=== PATIENT | female | born 1995 | race Caucasian/White ===

== ENCOUNTER 2020-04-20 02:04 | Emergency (ER) | payer SELFPAY ==
[2020-04-20] MEDS ORDERED: Sodium Chloride 0.9% 10 ML Syringe FLUSH PRN (02:29)
[2020-04-20] MEDS ORDERED: Sodium Chloride 0.9% 1,000 ML IV ONE (02:29)
[2020-04-20] MEDS ORDERED: Sodium Chloride 0.9% 2.5 ML Syringe FLUSH PRN (02:29)
[2020-04-20 03:32] LABS: BLOOD UREA NITROGEN,BUN 6 mg/dL (7.0-18.0); CARBON DIOXIDE,CO2 22.6 mmol/L (21.0-32.0); CHLORIDE,CL 103 mmol/L (98-107); GLUCOSE RANDOM 99 mg/dL (74-106); POTASSIUM,K 3.6 mmol/L (3.5-5.1); SODIUM,NA 140 mmol/L (136-145)
--- NOTE | 2020-04-20 03:33 | US ---
INDICATION: with bleeding and cramping. TECHNIQUE: Ultrasound OB pelvis transvaginal. Real-time boyle-scale imaging of the pelvis was performed. COMPARISON: None FINDINGS: There is an intrauterine . Yolk sac is abnormally enlarged. Fetus is present with a crown-rump length of 17 mm which would correspond to an 8 week 2 day gestational age and estimated date of delivery November 28, 2020. There is no heart activity which would be expected at this stage. The ovaries are of normal size. There are no suspicious fluid collections noted in the cul-de-sac. IMPRESSION: Nonviable 1st trimester dating . Findings consistent with demise. Dictated by Gustavo David MD @ Apr 20 2020 3:30AM Signed by Dr. Gustavo David @ Apr 20 2020 3:32AM
--- NOTE | 2020-04-20 03:39 | EDM.PDOC ---
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 Patient's last menstrual jenna od was 8 weeks ago. Patient reports she has not had prior ultrasounds or prior care. Patient reports this evening she started noticing vaginal bleeding and abdominal cramping so came to the ED. Patient reports that she is used less than 1 pad thus far. Patient denies any recent fevers, shakes, chills, nausea, vomiting, diarrhea, dysuria, frequency, urgency, chest pain, shortness of breath. Patient has any history of hypertension, diabetes, liver, lung, kidney problems. Patient denies any prior abdominal or chest surgeries. Patient denies any tobacco alcohol or drugs. Patient has no known drug allergies Review of systems: As per history of present illness and below otherwise all systems reviewed and negative. Past medical history: As per history of present illness and as reviewed below otherwise noncontributory. Surgical history: As per history of present illness and as reviewed below otherwise noncontributory. Social history: No reported history of drug or alcohol abuse. Family history: As per history of present illness and as reviewed below otherwise noncontributory. Physical exam: Constitutional: Patient is oriented to person, place, and time. Appears well- developed and well-nourished. No distress. HEENT: Moist mucous membranes Head: Normocephalic and atraumatic Eyes: Right eye exhibits no discharge. Left eye exhibits no discharge. No scleral icterus Neck: Normal range of motion. No tracheal deviation present. Cardiovascular: Normal rate and regular rhythm. Pulmonary: Effort normal, no respiratory distress. Abd: Soft, nondistended, no rebound/guarding, no psoas or obturator signs, no tenderness at Mcberney's point, no Mireles's sign. Pt does not present with an exam that would be consistent with an acute surgical abdomen at this time, mild tenderness palpation suprapubic region Pelvic exam: Os closed. No adnexal masses or tenderness, no cervical motion tenderness, positive blood in vaginal vault Musculoskeletal: Normal range of motion Neurologic: Alert and oriented to person, place and time. Skin: [place], warm and dry. Psychiatric: Normal mood and affect. Behavior is normal. Judgment and thought content normal. Nursing note and vital signs have been reviewed Diagnostics: Ultrasound reveals single 8-week IUP with no cardiac activity seen normal ovaries, exam consistent with intrauterine demise. Patient is Rh+ CBC within normal limits No evidence of UTI, increased blood likely contaminant Therapeutics: NSS x1 L Assessment and plan: This is a 24-year-old female with 8-week IUFD diagnosed by ultrasound. Patient is clinically and hemodynamically stable here in the ED. I have discussed the results with the patient and her . 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 Reassessment at the time of disposition demonstrates that the patient is in no acute distress. The patient has remained stable throughout the entire ED visit and is without objective evidence for acute process requiring urgent intervention or hospitalization. The patient is stable for discharge, counseling is provided as documented above, discussed symptomatic treatment and specific conditions for return. I have spoken with the patient/caregiver and discussed todays findings, in addition to providing specific details for the plan of care. Questions are answered and there is agreement with the plan. Definitive disposition and diagnosis as appropriate pending reevaluation and review of above. - Related Data Allergies Allergy/AdvReac Type Severity Reaction Status Date / Time No Known Allergies Allergy Verified 04/20/20 02:25 Home Meds: Home Meds . [No Known Home Meds] 04/20/20 [History] Past Medical History - Past Health History Medical/Surgical History: Denies Medical/Surgical History - Infectious Disease History Infectious Disease History: Reports: Chicken Pox Social & Family History - Tobacco Use Tobacco Use Status *Q: Never Tobacco User - Recreational Drug Use Recreational Drug Use: No ED ROS GENERAL - Review of Systems Review Of Systems: See Below ED EXAM, GENERAL - Physical Exam Exam: See Below Course - Vital Signs Last Recorded V/S: Last Vital Signs Temp 97.9 F 04/20/20 02:22 Pulse 90 04/20/20 02:22 Resp 18 04/20/20 02:22 BP 145/77 H 04/20/20 02:22 Pulse Ox 98 04/20/20 02:22 - Orders/Labs/Meds Orders: Active Orders 24 hr Category Date Time Status OB 1st Tri Sgl 1st Gest [US] Stat Exams 04/20/20 02:30 Taken COMPREHENSIVE METABOLIC PN,CMP [CHEM] Stat Lab 04/20/20 02:45 Received HCG QUANTITATIVE [CHEM] Stat Lab 04/20/20 02:45 Received Sodium Chloride 0.9% [Saline Flush] Med 04/20/20 02:29 Active 10 ml FLUSH ASDIRECTED PRN Sodium Chloride 0.9% [Saline Flush] Med 04/20/20 02:29 Active 2.5 ml FLUSH ASDIRECTED PRN Saline Lock Insert [OM.PC] Stat Oth 04/20/20 02:30 Ordered Medication Orders Sodium Chloride (Saline Flush) 10 ml FLUSH ASDIRECTED PRN PRN Reason: Keep Vein Open Sodium Chloride (Saline Flush) 2.5 ml FLUSH ASDIRECTED PRN PRN Reason: Keep Vein Open Labs: Laboratory Tests 04/20/20 04/20/20 04/20/20 Range/Units 02:15 02:45 02:45 WBC 9.58 (4.0-11.0) K/uL RBC 5.33 (4.30-5.90) M/uL Hgb 13.8 (12.0-16.0) g/dL Hct 41.3 (36.0-46.0) % MCV 77.5 L (80.0-98.0) fL MCH 25.9 L (27.0-32.0) pg MCHC 33.4 (31.0-37.0) g/dL RDW Std Deviation 37.9 (28.0-62.0) fl RDW Coeff of Jamir 13 (11.0-15.0) % Plt Count 222 (150-400) K/uL MPV 10.10 (7.40-12.00) fL Neut % (Auto) 57.4 (48.0-80.0) % Lymph % (Auto) 33.1 (16.0-40.0) % [place] % (Auto) 7.3 (0.0-15.0) % Eos % (Auto) 2.0 (0.0-7.0) % Baso % (Auto) 0.2 (0.0-1.5) % Neut # (Auto) 5.5 (1.4-5.7) K/uL Lymph # (Auto) 3.2 H (0.6-2.4) K/uL [place] # (Auto) 0.7 (0.0-0.8) K/uL Eos # (Auto) 0.2 (0.0-0.7) K/uL Baso # (Auto) 0.0 (0.0-0.1) K/uL Nucleated RBC % 0.0 /100WBC Nucleated RBCs # 0 K/uL Urine Color YELLOW Urine Appearance CLOUDY Urine pH 6.5 (5.0-8.0) Ur Specific [place] >= 1.030 (1.001-1.035) Urine Protein TRACE H (NEGATIVE) mg/dL Urine Glucose (UA) NEGATIVE (NEGATIVE) mg/dL Urine Ketones NEGATIVE (NEGATIVE) mg/dL Urine Occult Blood LARGE H (NEGATIVE) Urine Nitrite NEGATIVE (NEGATIVE) Urine Bilirubin NEGATIVE (NEGATIVE) Urine Urobilinogen 1.0 (<2.0) EU/dL Ur Leukocyte Esterase TRACE H (NEGATIVE) Urine RBC TOO NUMEROUS TO CT H (0-2/HPF) Urine WBC 2-4 (0-5/HPF) Ur Epithelial Cells FEW (NONE-FEW) Urine Bacteria FEW (NEGATIVE) Urine Mucus MODERATE (NONE-MOD) Blood Type A POSITIVE Meds: Medications Generic Name Dose Route Start Last Admin Trade Name Freq PRN Reason Stop Dose Admin Sodium Chloride 10 ml 04/20/20 02:29 Saline Flush FLUSH ASDIRECTED PRN Keep Vein Open Sodium Chloride 2.5 ml 04/20/20 02:29 Saline Flush FLUSH ASDIRECTED PRN Keep Vein Open Discontinued Medications Generic Name Dose Route Start Last Admin Trade Name Freq PRN Reason Stop Dose Admin Sodium Chloride 1,000 mls @ 1,000 mls/hr 04/20/20 02:29 04/20/20 02:47 Normal Saline IV 04/20/20 03:28 1,000 mls/hr BOLUS ONE Administration Departure - Departure Time of Disposition: 03:36 Disposition: Home, Self-Care 01 Condition: Good Clinical Impression: Threatened , demise due to miscarriage, Miscarriage - Discharge Information Instructions: Managing Loss, Miscarriage Referrals: PCP,None [Primary Care Provider] - Additional Instructions: I am sorry to inform you that you are currently having a miscarriage. The ultrasound revealed an 8-week intrauterine with no cardiac activity that was identified. You will continue to have bleeding over the next several days consistent with an extremely heavy period and cramping. You should return to the emergency department if you start bleeding more than 2-3 pads per hour f or more than 2 to 3 hours consecutively. Please make an appointment to follow- up with your OB doctor or you can call our OB clinic for follow-up. Return to the ER if you have any new or concerning symptoms or need assistance with anything. [facility] [address] [place] [id number] [facility] [address] [place] [id number] The following information is given to patients seen in the emergency department who are being discharged to home. This information is to outline your options for follow-up care. We provide all patients seen in our emergency department with a follow-up referral. The need for follow-up, as well as the timing and circumstances, are variable depending upon the specifics of your emergency department visit. If you don't have a primary care physician on staff, we will provide you with a referral. We always advise you to contact your personal physician following an emergency department visit to inform them of the circumstance of the visit and for follow-up with them and/or the need for any referrals to a consulting specialist. The emergency department will also refer you to a specialist when appropriate. This referral assures that you have the opportunity for follow-up care with a specialist. All of these measure are taken in an effort to provide you with optimal care, which includes your follow-up. Under all circumstances we always encourage you to contact your private physician who remains a resource for coordinating your care. When calling for follow-up care, please make the office aware that this follow-up is from your recent emergency room visit. If for any reason you are refused follow-up, please contact the [facility] Emergency Department at and asked to speak to the emergency department charge nurse. Sepsis Event Note (ED) - Evaluation Sepsis Screening Result: No Definite Risk - Focused Exam Vital Signs: Vital Signs Temp Pulse Resp BP Pulse Ox 04/20/20 02:22 97.9 F 90 18 145/77 H 98 - My Orders Last 24 Hours: My Active Orders 04/20/20 02:29 Sodium Chloride 0.9% [Saline Flush] 10 ml FLUSH ASDIRECTED PRN Sodium Chloride 0.9% [Saline Flush] 2.5 ml FLUSH ASDIRECTED PRN 04/20/20 02:30 OB 1st Tri Sgl 1st Gest [US] Stat Saline Lock Insert [OM.PC] Stat 04/20/20 02:45 COMPREHENSIVE METABOLIC PN,CMP [CHEM] Stat HCG QUANTITATIVE [CHEM] Stat - Assessment/Plan Last 24 Hours: My Active Orders 04/20/20 02:29 Sodium Chloride 0.9% [Saline Flush] 10 ml FLUSH ASDIRECTED PRN Sodium Chloride 0.9% [Saline Flush] 2.5 ml FLUSH ASDIRECTED PRN 04/20/20 02:30 OB 1st Tri Sgl 1st Gest [US] Stat Saline Lock Insert [OM.PC] Stat 04/20/20 02:45 COMPREHENSIVE METABOLIC PN,CMP [CHEM] Stat HCG QUANTITATIVE [CHEM] Stat
== END 2020-04-20 03:58 | disposition home or self-care (01) ==
LOC: MW.ED 02:04
DX: O02.1 Missed abortion (principal)
CPT/HCPCS: 36415; 76801; 80053; 81001; 84702; 85025; 86900; 86901; 99284; J7030

== ENCOUNTER 2020-05-08 21:02 | Emergency (ER) | payer SELFPAY ==
[2020-05-08] MEDS ORDERED: Sodium Chloride 0.9% 10 ML Syringe FLUSH PRN (21:20)
[2020-05-08] MEDS ORDERED: Sodium Chloride 0.9% 2.5 ML Syringe FLUSH PRN (21:20)
[2020-05-08] MEDS ORDERED: Sodium Chloride 0.9% 1,000 ML IV ONE (21:20)
[2020-05-08 22:26] LABS: BLOOD UREA NITROGEN,BUN 10 mg/dL (7.0-18.0); CARBON DIOXIDE,CO2 23.6 mmol/L (21.0-32.0); CHLORIDE,CL 105 mmol/L (98-107); GLUCOSE RANDOM 97 mg/dL (74-106); POTASSIUM,K 3.6 mmol/L (3.5-5.1); SODIUM,NA 140 mmol/L (136-145)
--- NOTE | 2020-05-08 22:49 | US ---
HISTORY: demise previously diagnosed, methotrexate taken 04/25, now with increased vaginal bleeding. COMPARISON: Ob ultrasound from 04/20/2020 TECHNIQUE: Transvaginal ultrasound examination of the early was performed. FINDINGS: A single intrauterine gestational sac is seen with a pole. The crown-rump length measurement of 1.3 cm gives an estimated gestational age of 7 weeks 5 days. This is similar to the estimated age of 8 weeks 2 days reported on the previous ultrasound from 04/20/2020. No cardiac activity is present, again consistent with demise. The gestational sac is irregular in shape, but located in the superior fundal uterine cavity. The findings are that of a missed spontaneous . There is no sign of free fluid in the pelvis. The ovaries are normal in appearance. IMPRESSION: Findings of a missed spontaneous . Single intrauterine gestation without cardiac activity, with no interval growth compared to the previous ultrasound of 04/20/2020. Gestational sac irregularly-shaped, but located in the superior uterine fundus. Dictated by Umesh Pfeiffer MD @ May 08 2020 10:42PM Signed by Dr. Umesh Pfeiffer @ May 08 2020 10:47PM
--- NOTE | 2020-05-08 23:08 | EDM.PDOC ---
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 Patient was seen in the ER here on April 20 and was diagnosed with a intrauterine demise by ultrasound at approximately 8 weeks gestation. 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 She reports that she to medication 2 days later had a small amount of bleeding. Patient presents the ER today secondary to increased bleeding today. Patient denies any recent fevers, shakes, chills, nausea, vomiting, diarrhea, dysuria, frequency, urgency, chest pain, shortness of breath, abdominal pain, pelvic pain. Patient denies any dizziness or syncopal episodes. Review of systems: As per history of present illness and below otherwise all systems reviewed and negative. Past medical history: As per history of present illness and as reviewed below otherwise noncontributory. Surgical history: As per history of present illness and as reviewed below otherwise noncontributory. Social history: No reported history of drug or alcohol abuse. Family history: As per history of present illness and as reviewed below otherwise noncontributory. Physical exam: Constitutional: Patient is oriented to person, place, and time. Appears well- developed and well-nourished. No distress. HEENT: Moist mucous membranes Head: Normocephalic and atraumatic Eyes: Right eye exhibits no discharge. Left eye exhibits no discharge. No scleral icterus Neck: Normal range of motion. No tracheal deviation present. Cardiovascular: Normal rate and regular rhythm. Pulmonary: Effort normal, no respiratory distress. Abd: Soft, nondistended, no rebound/guarding, no psoas or obturator signs, no tenderness at Mcberney's point, no Mireles's sign. Pt does not present with an exam that would be consistent with an acute surgical abdomen at this time, nontender to palpation. Pelvic exam deferred because patient had pelvic ult rasound already. Musculoskeletal: Normal range of motion Neurologic: Alert and oriented to person, place and time. Skin: [place], warm and dry. Psychiatric: Normal mood and affect. Behavior is normal. Judgment and thought content normal. Nursing note and vital signs have been reviewed Diagnostics: Pelvic ultrasound reveals no change in her gestational sac of approximately 8 weeks gestation. No heart activity. Patient's beta-hCG is down to about 2000. This is significantly decreased from 70,000 that it was a couple weeks ago. Patient CBC and CMP in electrolytes are all within normal limits Assessment and plan: 24-year-old female with intrauterine demise of 8 weeks gestation who presents ER today with vaginal bleeding. Patient is clinically and hemodynamically stable. Patient's ultrasound reveals no significant change from her prior ultrasound. Patient still has an 8-week size gestation with no heart activity. Patient beta-hCG is appropriately declining. Patient is hemodynamically stable. Patient abdominal exam is benign. Patient be discharged home with instructions to follow-up as scheduled with her OB doctor on Friday. Patient was given return precautions. Patient was told to return if she has any increased dizziness weakness or excessive bleeding that is concerning to her. Reassessment at the time of disposition demonstrates that the patient is in no acute distress. The patient has remained stable throughout the entire ED visit and is without objective evidence for acute process requiring urgent intervention or hospitalization. The patient is stable for discharge, counseling is provided as documented above, discussed symptomatic treatment and specific conditions for return. I have spoken with the patient/caregiver and discussed todays findings, in addition to providing specific details for the plan of care. Questions are answered and there is agreement with the plan. Definitive disposition and diagnosis as appropriate pending reevaluation and review of above. - Related Data Allergies Allergy/AdvReac Type Severity Reaction Status Date / Time No Known Allergies Allergy Verified 05/08/20 21:12 Home Meds: Home Meds . 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 History: Reports: , Spontaneous - Infectious Disease History Infectious Disease History: Reports: Chicken Pox Social & Family History - Tobacco Use Tobacco Use Status *Q: Never Tobacco User - Recreational Drug Use Recreational Drug Use: No ED ROS GENERAL - Review of Systems Review Of Systems: See Below ED EXAM, GENERAL - Physical Exam Exam: See Below Course - Vital Signs Last Recorded V/S: Last Vital Signs Temp 98.4 F 05/08/20 21:13 Pulse 86 05/08/20 21:37 Resp 18 05/08/20 21:37 BP 126/70 05/08/20 21:37 Pulse Ox 98 05/08/20 21:37 - Orders/Labs/Meds Orders: Active Orders 24 hr Category Date Time Status Sodium Chloride 0.9% [Saline Flush] Med 05/08/20 21:20 Active 10 ml FLUSH ASDIRECTED PRN Sodium Chloride 0.9% [Saline Flush] Med 05/08/20 21:20 Active 2.5 ml FLUSH ASDIRECTED PRN Saline Lock Insert [OM.PC] Stat Oth 05/08/20 21:20 Ordered Medication Orders Sodium Chloride (Saline Flush) 10 ml FLUSH ASDIRECTED PRN PRN Reason: Keep Vein Open Sodium Chloride (Saline Flush) 2.5 ml FLUSH ASDIRECTED PRN PRN Reason: Keep Vein Open Labs: Laboratory Tests 05/08/20 05/08/20 05/08/20 Range/Units 21:20 21:20 21:20 WBC 8.58 (4.0-11.0) K/uL RBC 5.22 (4.30-5.90) M/uL Hgb 13.4 (12.0-16.0) g/dL Hct 40.9 (36.0-46.0) % MCV 78.4 L (80.0-98.0) fL MCH 25.7 L (27.0-32.0) pg MCHC 32.8 (31.0-37.0) g/dL RDW Std Deviation 38.0 (28.0-62.0) fl RDW Coeff of Jamir 13 (11.0-15.0) % Plt Count 214 (150-400) K/uL MPV 10.60 (7.40-12.00) fL Neut % (Auto) 58.9 (48.0-80.0) % Lymph % (Auto) 31.4 (16.0-40.0) % [place] % (Auto) 7.3 (0.0-15.0) % Eos % (Auto) 2.2 (0.0-7.0) % Baso % (Auto) 0.2 (0.0-1.5) % Neut # (Auto) 5.1 (1.4-5.7) K/uL Lymph # (Auto) 2.7 H (0.6-2.4) K/uL [place] # (Auto) 0.6 (0.0-0.8) K/uL Eos # (Auto) 0.2 (0.0-0.7) K/uL Baso # (Auto) 0.0 (0.0-0.1) K/uL Nucleated RBC % 0.0 /100WBC Nucleated RBCs # 0 K/uL Sodium 140 (136-145) mmol/L Potassium 3.6 (3.5-5.1) mmol/L Chloride 105 (98-107) mmol/L Carbon Dioxide 23.6 (21.0-32.0) mmol/L BUN 10 (7.0-18.0) mg/dL Creatinine 0.6 (0.6-1.0) mg/dL Est Cr Clr Drug Dosing 125.92 mL/min Estimated GFR (MDRD) > 60.0 ml/min Glucose 97 (74-106) mg/dL Calcium 9.1 (8.5-10.1) mg/dL Total Bilirubin 0.2 (0.2-1.0) mg/dL AST 24 (15-37) IU/L ALT 40 (14-63) IU/L Alkaline Phosphatase 66 (46-116) U/L Total Protein 7.3 (6.4-8.2) g/dL Albumin 4.0 (3.4-5.0) g/dL Globulin 3.3 (2.6-4.0) g/dL Albumin/Globulin Ratio 1.2 (0.9-1.6) HCG, Quant 2040.0 mIU/mL Urine Color YELLOW Urine Appearance CLOUDY Urine pH 6.5 (5.0-8.0) Ur Specific [place] 1.025 (1.001-1.035) Urine Protein 30 H (NEGATIVE) mg/dL Urine Glucose (UA) NEGATIVE (NEGATIVE) mg/dL Urine Ketones NEGATIVE (NEGATIVE) mg/dL Urine Occult Blood LARGE H (NEGATIVE) Urine Nitrite NEGATIVE (NEGATIVE) Urine Bilirubin NEGATIVE (NEGATIVE) Urine Urobilinogen 1.0 (<2.0) EU/dL Ur Leukocyte Esterase TRACE H (NEGATIVE) Urine RBC >100 H (0-2/HPF) Urine WBC 0-1 (0-5/HPF) Ur Epithelial Cells RARE (NONE-FEW) Urine Bacteria RARE (NEGATIVE) Urine Mucus LIGHT (NONE-MOD) Meds: Medications Generic Name Dose Route Start Last Admin Trade Name Freq PRN Reason Stop Dose Admin Sodium Chloride 10 ml 05/08/20 21:20 Saline Flush FLUSH ASDIRECTED PRN Keep Vein Open Sodium Chloride 2.5 ml 05/08/20 21:20 Saline Flush FLUSH ASDIRECTED PRN Keep Vein Open Discontinued Medications Generic Name Dose Route Start Last Admin Trade Name Freq PRN Reason Stop Dose Admin Sodium Chloride 1,000 mls @ 999 mls/hr 05/08/20 21:20 05/08/20 21:35 Normal Saline IV 05/08/20 22:20 999 mls/hr .Bolus ONE Administration Departure - Departure Time of Disposition: 23:08 Disposition: Home, Self-Care 01 Condition: Good Clinical Impression: IUFD at less than 20 weeks of gestation - Discharge Information Instructions: Managing Loss, Miscarriage, [id number] Referrals: Robin Siegel MD [Primary Care Provider] - Additional Instructions: Please keep your appointment on Friday with your OB doctor. Return the ER if you have any excessive bleeding that is concerning to you. Return to the ER if you have any dizziness, shortness of breath or feel like you might pass out. Return to the ER if you are bleeding more than 3 pads an hour for more than 3 hours in a row. The following information is given to patients seen in the emergency department who are being discharged to home. This information is to outline your options for follow-up care. We provide all patients seen in our emergency department with a follow-up referral. The need for follow-up, as well as the timing and circumstances, are variable depending upon the specifics of your emergency department visit. If you don't have a primary care physician on staff, we will provide you with a referral. We always advise you to contact your personal physician following an emergency department visit to inform them of the circumstance of the visit and for follow-up with them and/or the need for any referrals to a consulting specialist. The emergency department will also refer you to a specialist when appropriate. This referral assures that you have the opportunity for follow-up care with a specialist. All of these measure are taken in an effort to provide you with optimal care, which includes your follow-up. Under all circumstances we always encourage you to contact your private physician who remains a resource for coordinating your care. When calling for follow-up care, please make the office aware that this follow-up is from your recent emergency room visit. If for any reason you are refused follow-up, please contact the [facility] Emergency Department at and asked to speak to the emergency department charge nurse. Sepsis Event Note (ED) - Evaluation Sepsis Screening Result: No Definite Risk - Focused Exam Vital Signs: Vital Signs Temp Pulse Resp BP Pulse Ox 05/08/20 21:37 86 18 126/70 98 05/08/20 21:13 98.4 F 90 16 152/80 H 98 - My Orders Last 24 Hours: My Active Orders 05/08/20 21:20 Sodium Chloride 0.9% [Saline Flush] 10 ml FLUSH ASDIRECTED PRN Sodium Chloride 0.9% [Saline Flush] 2.5 ml FLUSH ASDIRECTED PRN Saline Lock Insert [OM.PC] Stat - Assessment/Plan Last 24 Hours: My Active Orders 05/08/20 21:20 Sodium Chloride 0.9% [Saline Flush] 10 ml FLUSH ASDIRECTED PRN Sodium Chloride 0.9% [Saline Flush] 2.5 ml FLUSH ASDIRECTED PRN Saline Lock Insert [OM.PC] Stat
== END 2020-05-08 23:15 | disposition home or self-care (01) ==
LOC: MW.ED 21:02
DX: O02.1 Missed abortion (principal)
CPT/HCPCS: 36415; 76817; 80053; 81001; 84702; 85025; 99284; J7030; 99283

== ENCOUNTER 2025-02-28 06:12 | Inpatient (IN) | payer MEDICAID ==
[2025-02-28] MEDS ORDERED: Water For Irrigation,Sterile 1,000 ML Container IRR PRN (06:45)
[2025-02-28] MEDS ORDERED: Terbutaline 1 MG/ML SDV SUBCUT PRN (06:45)
[2025-02-28] MEDS ORDERED: Sodium Chloride 0.9% 2.5 ML Syringe FLUSH PRN (06:45)
[2025-02-28] MEDS ORDERED: Sodium Chloride 0.9% 10 ML Syringe FLUSH PRN (06:45)
[2025-02-28] MEDS ORDERED: Butorphanol 1 MG/ML SDV IVPUSH PRN (06:45)
[2025-02-28] MEDS ORDERED: ePHEDrine 50 MG/ML SDV IVPUSH PRN (07:22)
[2025-02-28] MEDS ORDERED: dexmedeTOMIDine HCl 200 MCG/2 ML SDV EPIDUR SCH (07:30)
[2025-02-28] MEDS: Lactated Ringers 1,000 ML IV SCH (08:16)
[2025-02-28 08:36] LABS: MEAN PLATELET VOLUME 10.6 fL (9.4-12.3); NRBC ABSOLUTE 0.00 K/uL (0.00-0.02); NRBC PERCENT 0.0 /100WBC (0.0-0.2); PLATELET COUNT,PLT 174 K/uL (150-400); RED BLOOD CELL COUNT 4.13 M/uL (4.10-5.30); WHITE BLOOD CELL COUNT,WBC 9.70 K/uL (3.9-11.3)
[2025-02-28 08:59] LABS: A/G RATIO 0.7 (0.9-1.6); ALANINE AMINOTRANSFERASE,ALT 20.0 IU/L (14-63); ASPARTATE AMNIOTRANSFERASE,AST 23.0 IU/L (15-37); BILIRUBIN TOTAL 0.2 mg/dL (0.2-1.0); BLOOD UREA NITROGEN,BUN 6.0 mg/dL (7.0-18.0); CARBON DIOXIDE,CO2 22.9 mmol/L (21.0-32.0); CHLORIDE,CL 105.0 mmol/L (98-107); CREATININE 0.4 mg/dL (0.6-1.0); EST CRCL DRUG DOSING (CG) 180.81 mL/min; GLUCOSE RANDOM 84.0 mg/dL (74-106); POTASSIUM,K 3.2 mmol/L (3.5-5.1); PROTEIN TOTAL,TP 6.2 g/dL (6.4-8.2); SODIUM,NA 140.0 mmol/L (136-145)
[2025-02-28 09:03] LABS: ESTIMATED GFR 138.0 mL/min (>60)
[2025-02-28 09:47] LABS: APPEARANCE,URINE CLEAR; GLUCOSE,URINE NEGATIVE (NEGATIVE); OCCULT BLOOD,URINE NEGATIVE (NEGATIVE)
[2025-02-28 10:13] LABS: CREATININE,URINE RAND 58.5 mg/dL; PROTEIN CREATININE RATIO,URINE 0.5; PROTEIN,URINE RANDOM 31.1 mg/dL (<11.9)
[2025-02-28] MEDS: Oxytocin/0.9 % Sodium Chloride 30 UNIT/500 ML BAG IV SCH ×2 (10:30→19:50)
[2025-02-28] MEDS: Ropivacaine HCl/PF 400 MG in Premix Bag 1 BAG EPIDUR SCH (16:35)
[2025-02-28] MEDS: Oxytocin 10 Units/1 ML SDV IM ONE (18:32)
[2025-02-28] MEDS ORDERED: Water For Injection, Sterile 20 ML ONE (19:29)
[2025-02-28] MEDS: ceFAZolin 2 GM in Water For Injection, Sterile 20 ML IVPUSH SCH (19:35)
[2025-02-28] MEDS ORDERED: Calcium Chloride 10% 1 GM/10 ML Syringe ONE (19:36)
[2025-02-28] MEDS: Carboprost Tromethamine 250 MCG/1 mL Vial IM PRN (19:36)
[2025-02-28] MEDS ORDERED: Ondansetron 4 MG/2 ML SDV ONE ×2 (19:39→19:40)
[2025-02-28] MEDS: Calcium Chloride 10% 1 GM/10 ML Syringe IVPUSH ONE (19:40)
[2025-02-28] MEDS ORDERED: droPERidol 2.5 MG/ML SDV ONE (19:40)
[2025-02-28] MEDS: Ondansetron 4 MG/2 ML SDV IVPUSH PRN (19:42)
[2025-02-28] MEDS ORDERED: Ondansetron 4 MG/2 ML SDV IVPUSH ONE (19:45)
[2025-02-28] MEDS ORDERED: droPERidol 2.5 MG/ML SDV IVPUSH ONE (19:45)
[2025-02-28 20:05] LABS: MEAN PLATELET VOLUME 10.2 fL (9.4-12.3); NRBC ABSOLUTE 0.00 K/uL (0.00-0.02); NRBC PERCENT 0.0 /100WBC (0.0-0.2); PLATELET COUNT,PLT 161 K/uL (150-400); RED BLOOD CELL COUNT 3.55 M/uL (4.10-5.30); WHITE BLOOD CELL COUNT,WBC 15.12 K/uL (3.9-11.3)
[2025-02-28] MEDS ORDERED: Witch Hazel Medicated Pads 40/Jar TOP PRN (20:22)
[2025-02-28] MEDS ORDERED: Lanolin 100% Cream 7 GM Tube TOP PRN (20:22)
[2025-02-28 20:32] LABS: A/G RATIO 0.7 (0.9-1.6); ALANINE AMINOTRANSFERASE,ALT 25.0 IU/L (14-63); ASPARTATE AMNIOTRANSFERASE,AST 25.0 IU/L (15-37); BILIRUBIN TOTAL 0.2 mg/dL (0.2-1.0); BLOOD UREA NITROGEN,BUN 6.0 mg/dL (7.0-18.0); CARBON DIOXIDE,CO2 20.3 mmol/L (21.0-32.0); CHLORIDE,CL 107.0 mmol/L (98-107); CREATININE 0.5 mg/dL (0.6-1.0); EST CRCL DRUG DOSING (CG) 144.65 mL/min; GLUCOSE RANDOM 81.0 mg/dL (74-106); POTASSIUM,K 3.3 mmol/L (3.5-5.1); PROTEIN TOTAL,TP 4.8 g/dL (6.4-8.2); SODIUM,NA 140.0 mmol/L (136-145)
[2025-02-28 20:33] LABS: ESTIMATED GFR 131.0 mL/min (>60)
[2025-02-28 21:32] LABS: INR 0.96 (0.86-1.11); PTT,PARTIAL THROMBOPLSTIN TIME 27.9 SEC (23.9-30.7)
[2025-03-01 06:04] LABS: MEAN PLATELET VOLUME 10.1 fL (9.4-12.3); NRBC ABSOLUTE 0.00 K/uL (0.00-0.02); NRBC PERCENT 0.0 /100WBC (0.0-0.2); PLATELET COUNT,PLT 153 K/uL (150-400); RED BLOOD CELL COUNT 3.69 M/uL (4.10-5.30); WHITE BLOOD CELL COUNT,WBC 12.58 K/uL (3.9-11.3)
[2025-03-01] MEDS: Benzocaine/Menthol 20%-0.5% Spray 78 GM Cannister TOP PRN (22:01)
== END 2025-03-02 11:15 | disposition home or self-care (01) | DRG 768 ==
LOC: MW.OBCHECK 06:12 → MW.OB 06:12 → MW.OBCHECK 07:12 → MW.OB 07:13 → OBSVTOIN 18:39 → MW.OB 03-01 00:02
PROVIDERS: ADMIT Obstetrics & Gynecology; ATTEND Obstetrics & Gynecology
PROC: 10E0XZZ Delivery of Products of Conception, External Approach (ICD-10-PCS; principal; 2025-02-28)
PROC: 0W3R7ZZ Control Bleeding in Genitourinary Tract, Via Natural or Artificial Opening (ICD-10-PCS; 2025-02-28)
PROC: 0KQM0ZZ Repair Perineum Muscle, Open Approach (ICD-10-PCS; 2025-02-28)
PROC: 30233N1 Transfusion of Nonautologous Red Blood Cells into Peripheral Vein, Percutaneous Approach (ICD-10-PCS; 2025-02-28)
PROC: 3E0R3BZ Introduction of Anesthetic Agent into Spinal Canal, Percutaneous Approach (ICD-10-PCS; 2025-02-28)
DX: O48.0 Post-term pregnancy (principal); Z37.0 Single live birth; O72.1 Other immediate postpartum hemorrhage; O14.94 Unspecified pre-eclampsia, complicating childbirth; Z79.899 Other long term (current) drug therapy; Z3A.40 40 weeks gestation of pregnancy; O99.824 Streptococcus B carrier state complicating childbirth; O99.02 Anemia complicating childbirth; O70.1 Second degree perineal laceration during delivery
CPT/HCPCS: 01967; 36415; 36430; 51702; 59025; 59409; 80053; 81003; 82570; 84156; 85027; 85384; 85610; 85730; 86592; 86850; 86900; 86901; 86920; A4216; A9270-GY; J0290; J0690; J1790; J2371; J2405; J2590; J2795; J3490; J7120; P9016